=== PATIENT | female | born 1995 | race Caucasian/White ===

== ENCOUNTER 2017-11-17 11:26 | Emergency (ER) | payer SELFPAY ==
[2017-11-17 11:35] VITALS: BP 119/74; BMI 25.7
[2017-11-17 12:05] LABS: BILIRUBIN,URINE NEGATIVE (NEGATIVE); BLOOD/HEMOGLOBIN,URINE 5+ (NEGATIVE); GLUCOSE, URINE NEGATIVE (NEGATIVE); KETONES,URINE NEGATIVE (NEGATIVE); LEUKOCYTE ESTERASE ,URINE 1+ (NEGATIVE); NITRITES,URINE NEGATIVE (NEGATIVE); PROTEIN,URINE 2+ (NEGATIVE); UROBILINOGEN,URINE 3+ (NORMAL)
--- NOTE | 2017-11-17 12:10 | DR.VAGB ---
HPI - Time Seen Time seen: 12:05 - PCP Primary Care Physician: eliseo - HPI Comment HPI Comment: NO FEVER, DYSURIA OR FREQUENCY. - Complaint Chief Complaint Doctors Comments: LOWER ABDOMINAL AND LOWER BACK PAIN WITH VAGINAL BLEEDING. TOOK HOME TEST AND WAS POSITIVE FOR PREDNANCY 2WEEKS AGO AND TODAY. 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 - Reviewed Nurses Notes Review: Yes - Source History Provided: Patient - Mode of Arrival Mode of Arrival: Ambulatory - Timing Onset of Chief Complaint: 11/17/17 - Duration Duration: Constant - Quality Quality: Clotted - Severity Pain: Moderate - Context Onset: Spontaneous control: None Blood type: Unknown History of: None - Associated signs and symptoms Associated signs and symptoms: Abdominal pain, Nausea PMH - PMH Past Medical History: No Past Medical History Comment: miscarriage in September 2017 Past Surgical History: No - Family History History of Family Medical Conditions: No - Social History Does patient currently use any type of tobacco product: Yes Have you used tobacco products in the last 12 months: No Type of Tobacco Use: Cigarettes Does any household member use tobacco: Yes Alcohol Use: None Do you use any recreational Drugs:: No Lives With: Mom Lives Where: Home - infectious screening In the last 2 months have you had wt loss of >10#?: NO Have you had fever, night sweats or hemotysis?: No Have you traveled outside the country in the last 6 months?: No Isolation: Standard ROS - Review of Systems Constitutional: Weakness, Fatigue. negative: Chills, Fever Eyes: No Symptoms Reported. negative: Eye Pain, Discharge ENTM: No Symptoms Reported. negative: Ear Pain, Nose Discharge, Nose Congestion , Throat Pain Respiratoy: No Symptoms Reported Cardiovascular: No Symptoms Reported Gastrointestinal/Abdominal: Abdominal Pain, Nausea Neurological: Weakness Musculoskeletal: Back Pain (LOWER BACK.) Integumentary: No Symptoms Reported Hematologic/Lymphatic: No Symptoms Reported Endocrine: No Symptoms Reported All Other Systems: Reviewed and Negative PE - Vital Signs Vitals: Temperature 98.0 F Pulse Rate 90 Respiratory Rate 20 Blood Pressure 119/74 O2 Sat by Pulse Oximetry 100 - General Limitations: No Limitations General Appearance: Alert - Head Head Exam: Normal Inspection - Eyes Eye exam: Normal Appearance - ENT ENT Exam: Normal External Ear Exam - Neck Neck Exam: Trachea Midline - Chest Chest Inspection: Symmetric Chest Wall Rise - Respiratory Respiratory Exam: Normal Lung Sounds Bilat Respiratory Exam: Bilateral Clear to Auscultation - Cardiovascular Cardiovascular Exam: Regular Rate, Normal Rhythm, Normal Heart Sounds - Abdominal Exam Abdominal Exam: Normal Bowel Sounds, Soft, Tenderness Abdominal Tenderness: RLQ, LLQ, Suprapubic - Rectal Rectal Exam: Deferred - Genitourinary External Exam: Female: Deferred : Speculum Exam (Female): Deferred : Bimanual Exam (female): Deferred - Extremities Extremities Exam: Normal Inspection - Back Back Exam: Normal Inspection - Neurologic Neurological Exam: Alert, Oriented X3 - Skin Skin Exam: Normal Color MDM - Additional Information Obtained Additional Information Obtained: Family - Differential diagnosis Diffenential diagnosis: Threatened , Dysmenorrhea, Menstrual bleeding, PID, UTI Course - Treatment Treatment: SEE ORDERS. PATIENT SIGN AMA BEFORE EVALUATION WAS COMPLETED. - Education/Counseling Education/Counseling: Patient, Family ROR - Labs Reviewed Laboratory Results Reviewed?: Yes Result Diagrams: 11/17/17 12:16 Laboratory: WBC 8.9 X10^3/uL (3.6-10.0) 11/17/17 12:16 RBC 4.78 X10^6/uL (3.5-5.4) 11/17/17 12:16 Hgb 14.6 g/dL (12.0-16.0) 11/17/17 12:16 Hct 42.1 % (36.0-47.0) 11/17/17 12:16 MCV 88.0 fL (80.0-100.0) 11/17/17 12:16 MCH 30.4 pg (27.0-34.0) 11/17/17 12:16 MCHC 34.6 g/dL (33.0-35.0) 11/17/17 12:16 RDW 13.7 % (11.6-16.5) 11/17/17 12:16 Plt Count 228 X10^3/uL (150.0-450.0) 11/17/17 12:16 MPV 9.2 fL (7.4-11.0) 11/17/17 12:16 Neut % (Auto) 71.8 % (42.0-75.0) 11/17/17 12:16 Lymph % (Auto) 21.7 % (21.0-51.0) 11/17/17 12:16 Tyler % (Auto) 5.0 % (0.0-13.0) 11/17/17 12:16 Eos % (Auto) 0.8 % (0.9-2.9) L 11/17/17 12:16 Baso % (Auto) 0.7 % (0.2-1.0) 11/17/17 12:16 Neut # (Auto) 6.4 x10^3/uL (2.2-4.8) H 11/17/17 12:16 Lymph # (Auto) 1.9 X10^3/uL (1.3-2.9) 11/17/17 12:16 Tyler # (Auto) 0.4 x10^3/uL (0.3-0.8) 11/17/17 12:16 Eos # (Auto) 0.1 x10^3/uL (0.0-0.2) 11/17/17 12:16 Baso # (Auto) 0.1 X10^3/uL (0.0-0.1) 11/17/17 12:16 Absolute Nucleated RBC 0.0 /100WBC 11/17/17 12:16 HCG, Qual Negative <10 mIU/mL 11/17/17 12:16 Specimen Type Random urine 11/17/17 11:51 Urine Color Yellow (YELLOW) 11/17/17 11:51 Urine Appearance Hazy (CLEAR) 11/17/17 11:51 Urine pH 6.0 (5.0 - 8.0) 11/17/17 11:51 Ur Specific Colo 1.015 (1.000-1.030) 11/17/17 11:51 Urine Protein 2+ (NEGATIVE) 11/17/17 11:51 Urine Glucose (UA) Negative (NEGATIVE) 11/17/17 11:51 Urine Ketones Negative (NEGATIVE) 11/17/17 11:51 Urine Occult Blood 5+ (NEGATIVE) 11/17/17 11:51 Urine Nitrite Negative (NEGATIVE) 11/17/17 11:51 Urine Bilirubin Negative (NEGATIVE) 11/17/17 11:51 Urine Urobilinogen 3+ (NORMAL) 11/17/17 11:51 Ur Leukocyte Esterase 1+ (NEGATIVE) 11/17/17 11:51 Urine RBC Tntc /HPF (NONE SEEN) 11/17/17 11:51 Urine WBC 3-5 /HPF (NONE SEEN) 11/17/17 11:51 Ur Squamous Epith Cells Few /HPF (NEGATIVE) 11/17/17 11:51 Urine Bacteria Trace /HPF (NEGATIVE) 11/17/17 11:51 Urine Mucus Few /HPF (NEGATIVE) 11/17/17 11:51 Ur Culture Indicated? No/not indicated 11/17/17 11:51 - Diagnosis Discharge Problem: Abdominal pain, Left against medical advice - Discharge Plan Disposition: 07 AGAINST MEDICAL ADVICE Condition: Stable - Follow ups/Referrals Follow ups/Referrals: NFD,None [Primary Care Provider] - 3 days - Instructions
[2017-11-17 12:12] LABS: APPEARANCE,URINE HAZY (CLEAR); COLOR,URINE YELLOW (YELLOW)
[2017-11-17 12:13] LABS: BACTERIA,URINE TRACE /HPF (NEGATIVE); MUCUS,URINE FEW /HPF (NEGATIVE); RBC,URINE TNTC /HPF (NONE SEEN); SQUAMOUS EPITHELIAL CELL,UR FEW /HPF (NEGATIVE)
[2017-11-17 12:26] LABS: BASOPHILS # (AUTO) 0.1 X10^3/uL (0.0-0.1); BASOPHILS % (AUTO) 0.7 % (0.2-1.0); EOSINOPHILS # (AUTO) 0.1 x10^3/uL (0.0-0.2); EOSINOPHILS % (AUTO) 0.8 % (0.9-2.9); HEMATOCRIT 42.1 % (36.0-47.0); HEMOGLOBIN 14.6 g/dL (12.0-16.0); LYMPHOCYTES # (AUTO) 1.9 X10^3/uL (1.3-2.9); LYMPHOCYTES % (AUTO) 21.7 % (21.0-51.0); MEAN CORPUSCULAR HEMOGLOBIN 30.4 pg (27.0-34.0); MEAN CORPUSCULAR HGB CONC 34.6 g/dL (33.0-35.0); MEAN PLATELET VOLUME 9.2 fL (7.4-11.0); MONOCYTES # (AUTO) 0.4 x10^3/uL (0.3-0.8); NEUTROPHILS # (AUTO) 6.4 x10^3/uL (2.2-4.8); NEUTROPHILS % (AUTO) 71.8 % (42.0-75.0); PLATELET COUNT 228 X10^3/uL (150.0-450.0); RED BLOOD COUNT 4.78 X10^6/uL (3.5-5.4); RED CELL DISTRIBUTION WIDTH 13.7 % (11.6-16.5); WHITE BLOOD COUNT 8.9 X10^3/uL (3.6-10.0)
[2017-11-17 12:38] LABS: SERUM PREGNANCY TEST, QUAL NEGATIVE <10 mIU/mL
== END 2017-11-17 12:48 | disposition left against medical advice (07) ==
LOC: ER 11:42
DX: R10.30 Lower abdominal pain, unspecified (principal); M54.5 Low back pain; N93.9 Abnormal uterine and vaginal bleeding, unspecified; Z32.01 Encounter for pregnancy test, result positive
CPT/HCPCS: 36415; 81001; 84703; 85025; 99282; 99283